=== PATIENT | female | born 1990 | race Two or more races ===

== ENCOUNTER 2017-07-29 14:51 | Emergency (ER) | payer BC, MEDICAID ==
[~2017-07-29] VITALS: Ht 162.6 cm; Wt 81.6 kg
[2017-07-29] MEDS ORDERED: LIDOCAINE 2%HCL (LOCAL ANESTH.) INJ 20ML MDV IJ ONE (19:30)
[2017-07-29] MEDS ORDERED: cefTRIAXone SOD 1,000 MG VL ONE (19:38)
[2017-07-29] MEDS ORDERED: cefTRIAXone SOD 1,000 MG VL IM ONE ×2 (19:45→20:00)
[2017-07-29 20:48] VITALS: BP 117/72
== END 2017-07-29 20:48 | disposition home or self-care (01) ==
LOC: ER 14:51
DX: L02.213 Cutaneous abscess of chest wall (principal)
CPT/HCPCS: 10060; 96372; 99283; J0696

== ENCOUNTER 2018-01-04 09:16 | Emergency (ER) | payer MEDICAID, OTHER ==
[2018-01-04 10:17] LABS: Basophils # (auto) 0 uL; Basophils % (auto) 0.4 % (0.0-2.0); Hemoglobin 14.5 g/dL (12.2-16.2); Lymphocytes # (auto) 2.6 uL; White Blood Cell 10.2 10^3/uL (4.4-10.8)
[2018-01-04 10:19] LABS: Eosinophils # (auto) 0.2 uL; Eosinophils % (auto) 1.5 % (0.0-7.0); Hematocrit 44.4 % (36.0-46.0); Lymphocytes % (auto) 25.9 % (10.0-50.0); Mean Corpuscular Hemoglobin 26.9 pg (28.0-32.0); Mean Corpuscular Hgb Conc. 32.7 g/dL (32.0-36.0); Mean Corpuscular Volume 82.1 fL (80.0-100.0); Monocytes # (auto) 0.6 uL; Monocytes % (auto) 6.2 % (0.0-12.0); Neutrophils # (auto) 6.7 uL; Platelet Count (auto) 213 10^3/uL (140-450); Red Blood Cells 5.41 10^6/uL (4.0-5.20); Red Cell Distribution Width 15.2 % (11.8-14.3)
[2018-01-04 10:28] VITALS: BP 132/88
[2018-01-04 10:35] LABS: Anion Gap 11 (5-15); Blood Urea Nitrogen 9 mg/dL (7-18); Carbon Dioxide 19 mmol/L (21-32); Chloride 109 mmol/L (98-107); Glucose 92 mg/dL (74-106); Potassium 3.7 mmol/L (3.5-5.1); Sodium 139 mmol/L (136-145)
[2018-01-04 10:36] LABS: Alanine Aminotransferase 18 U/L (13-56); Albumin 3.5 g/dL (3.4-5.0); Alkaline Phosphatase 85 U/L (45-117); Aspartate Aminotransferase 17 U/L (15-37); BUN/Creatinine Ratio 11.7; Bilirubin, Total 0.3 mg/dL (0.2-1.0); Calcium 8.7 mg/dL (8.5-10.1); GFR African American 115 mL/min; GFR Non-African American 95 mL/min; Total Protein 7.6 g/dL (6.4-8.2)
[2018-01-04] MEDS ORDERED: LORazepam 0.5 MG TAB PO ONE (10:45)
== END 2018-01-04 11:36 | disposition home or self-care (01) ==
LOC: EDBD 09:16 → ER 09:16
DX: R07.89 Other chest pain (principal); R20.0 Anesthesia of skin
CPT/HCPCS: 36415; 80053; 84484; 85025; 93005

== ENCOUNTER 2020-06-06 19:09 | Emergency (ER) | payer OTHER ==
[~2020-06-06] VITALS: Ht 160 cm; Wt 74.8 kg
[2020-06-06 19:33] VITALS: BP 115/72
[2020-06-06 22:05] LABS: Basophils # (auto) 0 10 ^3/uL (0-0.2); Basophils % (auto) 0.3 % (0.0-2.0); Eosinophils # (auto) 0.7 10 ^3/uL (0-0.8)
[2020-06-06 22:07] LABS: Eosinophils % (auto) 5.7 % (0.0-7.0); Hematocrit 38.5 % (36.0-46.0); Hemoglobin 12.2 g/dL (12.2-16.2); Lymphocytes # (auto) 3.8 10 ^3/uL (0.4-5.4); Lymphocytes % (auto) 31.7 % (10.0-50.0); Mean Corpuscular Hgb Conc. 31.8 g/dL (32.0-36.0); Mean Corpuscular Volume 72.3 fL (80.0-100.0); Monocytes # (auto) 0.6 10 ^3/uL (0-1.3); Monocytes % (auto) 5.2 % (0.0-12.0); Neutrophils # (auto) 6.8 10 ^3/uL (1.6-8.6); Neutrophils % (auto) 57.1 % (37.0-80.0); Platelet Count (auto) 309 10^3/uL (140-450); Red Blood Cells 5.33 10^6/uL (4.0-5.20); Red Cell Distribution Width 17.4 % (11.8-14.3)
[2020-06-06 22:25] LABS: Alanine Aminotransferase 24 U/L (13-56); Albumin 3.5 g/dL (3.4-5.0); Anion Gap 7 (5-15); Aspartate Aminotransferase 19 U/L (15-37); BUN/Creatinine Ratio 13.6; Blood Urea Nitrogen 11 mg/dL (7-18); Calcium 8.6 mg/dL (8.5-10.1); Carbon Dioxide 24 mmol/L (21-32); Chloride 106 mmol/L (98-107); GFR African American 107 mL/min; GFR Non-African American 88 mL/min; Glucose 93 mg/dL (74-106); Magnesium 2.1 mg/dL (1.6-2.6); Potassium 4.2 mmol/L (3.5-5.1); Sodium 137 mmol/L (136-145)
[2020-06-06 22:30] LABS: Alkaline Phosphatase 94 U/L (45-117); Bilirubin, Total 0.4 mg/dL (0.2-1.0); Total Protein 7.5 g/dL (6.4-8.2)
[2020-06-06 22:43] LABS: Alcohol, Urine < 3.0 mg/dL (0-10); Amphetamine Screen, Urine NEGATIVE (NEGATIVE); Barbiturate Scree,Urine NEGATIVE (NEGATIVE); Benzodiazephine Screen, Urine NEGATIVE (NEGATIVE); Cannabinoid Screen, Urine NEGATIVE (NEGATIVE); Cocaine Screen, Urine NEGATIVE (NEGATIVE); Opiate Scree,Urine NEGATIVE (NEGATIVE); Phencyclidine Screen, Urine NEGATIVE (NEGATIVE)
== END 2020-06-06 23:18 | disposition home or self-care (01) ==
LOC: ER 19:09
DX: F41.0 Panic disorder [episodic paroxysmal anxiety] (principal); F32.9 Major depressive disorder, single episode, unspecified
CPT/HCPCS: 36415; 80053; 80307; 83735; 83880; 84443; 84484; 85025; 93005